=== PATIENT | male | born 1965 | race Caucasian/White ===

== ENCOUNTER 2022-03-05 19:48 | Inpatient (IN) | payer MEDICARE ==
[~2022-03-05] VITALS: Ht 177.8 cm; Wt 149.5 kg
[2022-03-05 19:48] VITALS: BP 118/76
[2022-03-05] MEDS ORDERED: ASPIRIN81 M1 PO (19:59)
[2022-03-05] MEDS ORDERED: CARVEDILOL12.5 MG PO (20:00)
[2022-03-05] MEDS ORDERED: ATORVASTATIN CA20 M1 PO (20:00)
[2022-03-05] MEDS ORDERED: DEXAMETHASONE6 MG PO (20:00)
[2022-03-05] MEDS ORDERED: FUROSEMIDE40 MG PO (20:01)
[2022-03-05] MEDS ORDERED: NEURONTIN300 MG PO (20:01)
[2022-03-05] MEDS ORDERED: NATURE'S BLEND F1 MG PO (20:01)
[2022-03-05] MEDS ORDERED: LEVETIRACETAM500 MG PO (20:02)
[2022-03-05] MEDS ORDERED: ZESTORETIC 20-1 EACH PO (20:02)
[2022-03-05] MEDS ORDERED: NORVASC10 MG PO (20:03)
[2022-03-05] MEDS ORDERED: TERAZOSIN HYDROC5 MG PO (20:03)
[2022-03-05] MEDS ORDERED: BRILINTA90 M1 PO (20:04)
[2022-03-05 20:39] LABS: BASO % 0.2 % (0.0-1.0); EOS % 0.7 % (1.0-4.0); HEMATOCRIT 36.7 % (42.0-52.0); LYMPH # 0.6 10*3/uL (1.3-4.4); LYMPH % 11.2 % (27.0-41.0); MEAN CELL VOLUME 95.3 fl (80.0-94.0); MEAN CORPUSCULAR HGB 28.8 pg (27.0-31.0); MEAN CORPUSCULAR HGB CONC 30.2 g/dl (33.0-37.0); MEAN PLATELET VOLUME 9.3 fl (9.6-12.3); MONO # 0.5 10*3/uL (0.1-1.0); MONO % 9.7 % (3.0-9.0); NEUT # 4.3 10*3/uL (2.3-7.9); NEUT % 77.8 % (47.0-73.0); PLATELET COUNT AUTOMATED 200 10*3/uL (130-400); RED BLOOD COUNT 3.85 10*6/uL (4.50-5.90); RED CELL DISTRI WIDTH 14.1 % (0-14.5); WHITE BLOOD COUNT 5.6 10*3/uL (4.8-10.8)
[2022-03-05 20:55] LABS: POTASSIUM 3.6 mmol/L (3.4-5.1); TOTAL PROTEIN 7.5 gm/dL (6.0-8.0)
[2022-03-05 23:07] LABS: ARTERIAL BLOOD GAS PH 7.358 (7.35-7.45)
[2022-03-06] VITALS (8 sets, daily range): BP systolic 115–148; BP diastolic 52–78
[2022-03-06 04:26] LABS: BILIRUBIN Negative (Negative); BLOOD Negative (Negative); CLARITY Clear (Clear); COLOR Yellow (Yellow); GLUCOSE Negative (Negative); KETONE Negative (Negative); LEUKO ESTERASE Negative (Negative); NITRITE Negative (Negative)
[2022-03-06 04:35] LABS: WBC 0-2 wbc/hpf (0-5)
[2022-03-06 10:26] LABS: BASO % 0.2 % (0.0-1.0); EOS % 0.2 % (1.0-4.0); HEMATOCRIT 36.2 % (42.0-52.0); LYMPH % 19.6 % (27.0-41.0); MEAN CELL VOLUME 95.3 fl (80.0-94.0); MEAN CORPUSCULAR HGB 28.9 pg (27.0-31.0); MEAN CORPUSCULAR HGB CONC 30.4 g/dl (33.0-37.0); MEAN PLATELET VOLUME 9.5 fl (9.6-12.3); MONO # 0.6 10*3/uL (0.1-1.0); NEUT # 3.5 10*3/uL (2.3-7.9); NEUT % 67.4 % (47.0-73.0); PLATELET COUNT AUTOMATED 206 10*3/uL (130-400); RED CELL DISTRI WIDTH 14.2 % (0-14.5); WHITE BLOOD COUNT 5.2 10*3/uL (4.8-10.8)
[2022-03-06 10:50] LABS: POTASSIUM 3.8 mmol/L (3.4-5.1)
== END 2022-03-06 23:27 | disposition short-term general hospital (02) | DRG 871 ==
LOC: ED 19:48 → EDHOLD 03-06 06:20 → 4E 03-06 06:20
PROVIDERS: Internal Medicine; Registered Nurse; ADMIT Internal Medicine; ATTEND Internal Medicine
PROC: 5A09357 Assistance with Respiratory Ventilation, Less than 24 Consecutive Hours, Continuous Positive Airway Pressure (ICD-10-PCS; principal; 2022-03-06)
PROC: 05HC33Z Insertion of Infusion Device into Left Basilic Vein, Percutaneous Approach (ICD-10-PCS; 2022-03-06)
PROC: B54NZZA Ultrasonography of Left Upper Extremity Veins, Guidance (ICD-10-PCS; 2022-03-06)
PROC: XW033E5 Introduction of Remdesivir Anti-infective into Peripheral Vein, Percutaneous Approach, New Technology Group 5 (ICD-10-PCS; 2022-03-06)
DX: A41.9 Sepsis, unspecified organism (principal); I50.33 Acute on chronic diastolic (congestive) heart failure; J12.82 Pneumonia due to coronavirus disease 2019; U07.1 COVID-19; J96.21 Acute and chronic respiratory failure with hypoxia; J96.22 Acute and chronic respiratory failure with hypercapnia; N17.9 Acute kidney failure, unspecified; E87.3 Alkalosis; I13.0 Hypertensive heart and chronic kidney disease with heart failure and stage 1 through stage 4 chronic kidney disease, or unspecified chronic kidney disease; Z68.42 Body mass index [BMI] 45.0-49.9, adult; E44.0 Moderate protein-calorie malnutrition; R65.20 Severe sepsis without septic shock; N18.9 Chronic kidney disease, unspecified; Z66 Do not resuscitate; I25.10 Atherosclerotic heart disease of native coronary artery without angina pectoris; G47.33 Obstructive sleep apnea (adult) (pediatric); I73.9 Peripheral vascular disease, unspecified; I71.43 Infrarenal abdominal aortic aneurysm, without rupture; J44.9 Chronic obstructive pulmonary disease, unspecified; E66.9 Obesity, unspecified; E78.2 Mixed hyperlipidemia; Z99.81 Dependence on supplemental oxygen; Z51.5 Encounter for palliative care; Z79.82 Long term (current) use of aspirin; Z79.899 Other long term (current) drug therapy

== ENCOUNTER 2022-03-22 11:32 | Inpatient (IN) | payer MEDICARE ==
[~2022-03-22] VITALS: Ht 178 cm; Wt 163.9 kg
[2022-03-22] VITALS (26 sets, daily range): BP systolic 101–166; BP diastolic 54–96
[~2022-03-22 11:32] MED LIST: ASPIRIN81 M1 PO; ATORVASTATIN CA20 M1 PO; BRILINTA90 M1 PO; CARVEDILOL12.5 MG PO; DEXAMETHASONE6 MG PO; FUROSEMIDE40 MG PO; LEVETIRACETAM500 MG PO; NATURE'S BLEND F1 MG PO; NEURONTIN300 MG PO; NORVASC10 MG PO; TERAZOSIN HYDROC5 MG PO; ZESTORETIC 20-1 EACH PO
[2022-03-22 12:08] LABS: BASO % 0.1 % (0.0-1.0); EOS % 0.2 % (1.0-4.0); HEMATOCRIT 37.5 % (42.0-52.0); LYMPH # 0.7 10*3/uL (1.3-4.4); LYMPH % 5.9 % (27.0-41.0); MEAN CELL VOLUME 93.1 fl (80.0-94.0); MEAN CORPUSCULAR HGB 28.3 pg (27.0-31.0); MEAN CORPUSCULAR HGB CONC 30.4 g/dl (33.0-37.0); MEAN PLATELET VOLUME 9.2 fl (9.6-12.3); MONO # 0.5 10*3/uL (0.1-1.0); MONO % 4.2 % (3.0-9.0); NEUT # 10.7 10*3/uL (2.3-7.9); NEUT % 88.5 % (47.0-73.0); PLATELET COUNT AUTOMATED 234 10*3/uL (130-400); RED BLOOD COUNT 4.03 10*6/uL (4.50-5.90); RED CELL DISTRI WIDTH 14.1 % (0-14.5); WHITE BLOOD COUNT 12.1 10*3/uL (4.8-10.8)
[2022-03-22 12:23] LABS: ALKALINE PHOSPHATASE 61 U/L (46-116); BUN 51 mg/dl (9-23); CHLORIDE 98 mmol/L (98-107); POTASSIUM 3.5 mmol/L (3.4-5.1); SGPT/ALT 19 U/L (10-49); TOTAL PROTEIN 6.6 gm/dL (6.0-8.0)
[2022-03-22 12:56] LABS: ACT PARTIAL THROMBO TIME 27.5 SECONDS (20.0-32.1); INTERNATIONAL NORM RATIO 0.9 (2.0-3.5)
[2022-03-22 14:15] LABS: BILIRUBIN Negative (Negative); BLOOD Trace-Intact (Negative); CLARITY Clear (Clear); COLOR Yellow (Yellow); GLUCOSE Negative (Negative); KETONE Negative (Negative); LEUKO ESTERASE Negative (Negative); NITRITE Negative (Negative); PH 6.5 (4.5-8.0); UROBILINOGEN 0.2 E.U./dl (0.0-1.0)
[2022-03-22 14:48] LABS: WBC 0-2 wbc/hpf (0-5)
[2022-03-22] MEDS ORDERED: TYLENOL325 M1 PO (22:13)
[2022-03-22] MEDS ORDERED: VIT B PO (22:14)
[2022-03-22] MEDS ORDERED: NEURONTIN300 MG PO (22:14)
[2022-03-23] VITALS (8 sets, daily range): BP systolic 98–140; BP diastolic 52–81
[2022-03-23 07:53] LABS: BASO % 0.2 % (0.0-1.0); EOS # 0.4 10*3/uL (0.0-0.4); EOS % 4.2 % (1.0-4.0); HEMATOCRIT 37.7 % (42.0-52.0); LYMPH # 1.7 10*3/uL (1.3-4.4); LYMPH % 18.2 % (27.0-41.0); MEAN CORPUSCULAR HGB 28.5 pg (27.0-31.0); MEAN PLATELET VOLUME 9.5 fl (9.6-12.3); MONO # 0.6 10*3/uL (0.1-1.0); MONO % 6.1 % (3.0-9.0); NEUT # 6.6 10*3/uL (2.3-7.9); NEUT % 70.2 % (47.0-73.0); PLATELET COUNT AUTOMATED 223 10*3/uL (130-400); RED BLOOD COUNT 3.97 10*6/uL (4.50-5.90); RED CELL DISTRI WIDTH 14.4 % (0-14.5); WHITE BLOOD COUNT 9.4 10*3/uL (4.8-10.8)
[2022-03-23 09:50] LABS: FREE T4 1.06 ng/dl (0.89-1.76); POTASSIUM 3.8 mmol/L (3.4-5.1); THYROID STIM HORMONE (HS) 5.263 uIU/ml (0.550-4.780)
[2022-03-24] VITALS: BP 120/72
[2022-03-24 06:14] LABS: BASO % 0.3 % (0.0-1.0); EOS # 0.4 10*3/uL (0.0-0.4); HEMATOCRIT 35.4 % (42.0-52.0); LYMPH # 1.3 10*3/uL (1.3-4.4); LYMPH % 13.2 % (27.0-41.0); MEAN CELL VOLUME 96.5 fl (80.0-94.0); MEAN CORPUSCULAR HGB 28.9 pg (27.0-31.0); MEAN CORPUSCULAR HGB CONC 29.9 g/dl (33.0-37.0); MEAN PLATELET VOLUME 9.6 fl (9.6-12.3); MONO # 0.6 10*3/uL (0.1-1.0); NEUT # 7.5 10*3/uL (2.3-7.9); NEUT % 75.7 % (47.0-73.0); PLATELET COUNT AUTOMATED 185 10*3/uL (130-400); RED BLOOD COUNT 3.67 10*6/uL (4.50-5.90); RED CELL DISTRI WIDTH 14.6 % (0-14.5)
[2022-03-24 08:00] VITALS: BP 146/75
[2022-03-24 09:50] LABS: POTASSIUM 4.4 mmol/L (3.4-5.1)
[2022-03-24 11:36] LABS: ABG BASE EXCESS 13.7 mmol/L (-2.0-2.0); ARTERIAL BLOOD GAS PH 7.351 (7.35-7.45); ARTERIAL BLOOD GAS PO2 76.2 (80-90)
[2022-03-24 12:00] VITALS: BP 125/70
[2022-03-24 16:00] VITALS: BP 132/78
[2022-03-24 20:00] VITALS: BP 143/69
[2022-03-25] VITALS: BP 127/66
[2022-03-25 07:06] LABS: BASO % 0.3 % (0.0-1.0); EOS # 0.3 10*3/uL (0.0-0.4); EOS % 3.9 % (1.0-4.0); HEMATOCRIT 33.3 % (42.0-52.0); LYMPH # 1.3 10*3/uL (1.3-4.4); LYMPH % 16.9 % (27.0-41.0); MEAN CELL VOLUME 95.7 fl (80.0-94.0); MEAN CORPUSCULAR HGB 28.7 pg (27.0-31.0); MEAN PLATELET VOLUME 9.6 fl (9.6-12.3); MONO # 0.5 10*3/uL (0.1-1.0); NEUT # 5.6 10*3/uL (2.3-7.9); NEUT % 72.1 % (47.0-73.0); PLATELET COUNT AUTOMATED 155 10*3/uL (130-400); RED BLOOD COUNT 3.48 10*6/uL (4.50-5.90); RED CELL DISTRI WIDTH 14.5 % (0-14.5); WHITE BLOOD COUNT 7.8 10*3/uL (4.8-10.8)
[2022-03-25 07:21] LABS: POTASSIUM 4.1 mmol/L (3.4-5.1)
[2022-03-25 08:00] VITALS: BP 122/63; BP 148/73
[2022-03-25 09:59] LABS: ARTERIAL BLOOD GAS PH 7.356 (7.35-7.45)
[2022-03-25 12:00] VITALS: BP 135/82
[2022-03-25 12:43] LABS: ABG BASE EXCESS 13.2 mmol/L (-2.0-2.0); ARTERIAL BLOOD GAS PH 7.399 (7.35-7.45); ARTERIAL BLOOD GAS PO2 93.4 (80-90)
[2022-03-25 16:00] VITALS: BP 150/77
[2022-03-25 20:00] VITALS: BP 146/72
[2022-03-26] VITALS: BP 136/82
[2022-03-26 07:04] LABS: EOS # 0.3 10*3/uL (0.0-0.4); HEMATOCRIT 32.9 % (42.0-52.0); LYMPH # 1.1 10*3/uL (1.3-4.4); LYMPH % 14.4 % (27.0-41.0); MEAN CORPUSCULAR HGB CONC 31.9 g/dl (33.0-37.0); MEAN PLATELET VOLUME 10.2 fl (9.6-12.3); MONO # 0.5 10*3/uL (0.1-1.0); MONO % 6.2 % (3.0-9.0); NEUT # 5.5 10*3/uL (2.3-7.9); NEUT % 74.7 % (47.0-73.0); PLATELET COUNT AUTOMATED 146 10*3/uL (130-400); RED BLOOD COUNT 3.62 10*6/uL (4.50-5.90); RED CELL DISTRI WIDTH 14.6 % (0-14.5); WHITE BLOOD COUNT 7.3 10*3/uL (4.8-10.8)
[2022-03-26 07:16] LABS: MEAN CELL VOLUME 90.9 fl (80.0-94.0)
[2022-03-26 07:38] LABS: POTASSIUM 4.3 mmol/L (3.4-5.1)
[2022-03-26 07:54] LABS: ABG BASE EXCESS 10.8 mmol/L (-2.0-2.0); ARTERIAL BLOOD GAS PH 7.438 (7.35-7.45); ARTERIAL BLOOD GAS PO2 81.9 (80-90)
[2022-03-26 08:00] VITALS: BP 143/75
[2022-03-26 11:56] VITALS: BP 143/75
[2022-03-26 16:00] VITALS: BP 137/77
[2022-03-26 20:00] VITALS: BP 127/81
[2022-03-27] VITALS: BP 134/64
[2022-03-27 06:49] LABS: BASO % 0.1 % (0.0-1.0); EOS # 0.3 10*3/uL (0.0-0.4); EOS % 3.5 % (1.0-4.0); HEMATOCRIT 33.4 % (42.0-52.0); LYMPH # 1.3 10*3/uL (1.3-4.4); LYMPH % 17.1 % (27.0-41.0); MEAN CELL VOLUME 93.8 fl (80.0-94.0); MEAN CORPUSCULAR HGB 28.4 pg (27.0-31.0); MEAN CORPUSCULAR HGB CONC 30.2 g/dl (33.0-37.0); MEAN PLATELET VOLUME 10.2 fl (9.6-12.3); MONO # 0.5 10*3/uL (0.1-1.0); NEUT # 5.3 10*3/uL (2.3-7.9); NEUT % 71.5 % (47.0-73.0); PLATELET COUNT AUTOMATED 145 10*3/uL (130-400); RED BLOOD COUNT 3.56 10*6/uL (4.50-5.90); RED CELL DISTRI WIDTH 14.9 % (0-14.5); WHITE BLOOD COUNT 7.4 10*3/uL (4.8-10.8)
[2022-03-27 07:32] LABS: POTASSIUM 4.2 mmol/L (3.4-5.1)
[2022-03-27 08:00] VITALS: BP 102/61
[2022-03-27 08:50] LABS: ABG BASE EXCESS 15.3 mmol/L (-2.0-2.0); ARTERIAL BLOOD GAS PH 7.473 (7.35-7.45)
[2022-03-27] MEDS ORDERED: KLOR-CON M2020 ME1 PO (11:44)
[2022-03-27] MEDS ORDERED: XARE20MG PO (11:44)
[2022-03-27] MEDS ORDERED: VIBRAMYCIN HYC100 MG PO (11:45)
[2022-03-27 12:00] VITALS: BP 137/73
== END 2022-03-27 15:14 | DRG 280 ==
LOC: ED 11:32 → 5E 13:16 → EDHOLD 13:16 → 5E 19:58
PROVIDERS: Family Medicine; Internal Medicine; Internal Medicine Critical Care Medicine; Registered Nurse; Student in an Organized Health Care Education/Training Program; ADMIT Internal Medicine; ATTEND Internal Medicine
PROC: 5A09357 Assistance with Respiratory Ventilation, Less than 24 Consecutive Hours, Continuous Positive Airway Pressure (ICD-10-PCS; principal; 2022-03-24)
PROC: 5A09357 Assistance with Respiratory Ventilation, Less than 24 Consecutive Hours, Continuous Positive Airway Pressure (ICD-10-PCS; 2022-03-25)
PROC: 0HBRXZZ Excision of Toe Nail, External Approach (ICD-10-PCS; 2022-03-25)
PROC: 0HBRXZZ Excision of Toe Nail, External Approach (ICD-10-PCS; 2022-03-25)
PROC: 0HBRXZZ Excision of Toe Nail, External Approach (ICD-10-PCS; 2022-03-25)
PROC: 0HBRXZZ Excision of Toe Nail, External Approach (ICD-10-PCS; 2022-03-25)
PROC: 0HBRXZZ Excision of Toe Nail, External Approach (ICD-10-PCS; 2022-03-25)
PROC: 0HBRXZZ Excision of Toe Nail, External Approach (ICD-10-PCS; 2022-03-25)
PROC: 0HBRXZZ Excision of Toe Nail, External Approach (ICD-10-PCS; 2022-03-25)
PROC: 0HBRXZZ Excision of Toe Nail, External Approach (ICD-10-PCS; 2022-03-25)
PROC: 0HBRXZZ Excision of Toe Nail, External Approach (ICD-10-PCS; 2022-03-25)
PROC: 0HBRXZZ Excision of Toe Nail, External Approach (ICD-10-PCS; 2022-03-25)
PROC: 5A09357 Assistance with Respiratory Ventilation, Less than 24 Consecutive Hours, Continuous Positive Airway Pressure (ICD-10-PCS; 2022-03-26)
PROC: 05HC33Z Insertion of Infusion Device into Left Basilic Vein, Percutaneous Approach (ICD-10-PCS; 2022-03-26)
PROC: B54NZZA Ultrasonography of Left Upper Extremity Veins, Guidance (ICD-10-PCS; 2022-03-26)
PROC: 5A09357 Assistance with Respiratory Ventilation, Less than 24 Consecutive Hours, Continuous Positive Airway Pressure (ICD-10-PCS; 2022-03-27)
DX: I48.91 Unspecified atrial fibrillation (principal); E43 Unspecified severe protein-calorie malnutrition; I21.4 Non-ST elevation (NSTEMI) myocardial infarction; I50.33 Acute on chronic diastolic (congestive) heart failure; J96.21 Acute and chronic respiratory failure with hypoxia; J96.22 Acute and chronic respiratory failure with hypercapnia; R65.10 Systemic inflammatory response syndrome (SIRS) of non-infectious origin without acute organ dysfunction; N17.9 Acute kidney failure, unspecified; I13.0 Hypertensive heart and chronic kidney disease with heart failure and stage 1 through stage 4 chronic kidney disease, or unspecified chronic kidney disease; Z68.42 Body mass index [BMI] 45.0-49.9, adult; I71.40 Abdominal aortic aneurysm, without rupture, unspecified; N18.31 Chronic kidney disease, stage 3a; J44.9 Chronic obstructive pulmonary disease, unspecified; E66.9 Obesity, unspecified; E78.5 Hyperlipidemia, unspecified; D64.9 Anemia, unspecified; G47.33 Obstructive sleep apnea (adult) (pediatric); R73.9 Hyperglycemia, unspecified; I25.118 Atherosclerotic heart disease of native coronary artery with other forms of angina pectoris; E66.01 Morbid (severe) obesity due to excess calories; L89.312 Pressure ulcer of right buttock, stage 2; Z86.73 Personal history of transient ischemic attack (TIA), and cerebral infarction without residual deficits